=== PATIENT | female | born 1965 | race Caucasian/White ===

== ENCOUNTER → 2016-07-14 | Outpatient (CLI) | payer OTHER ==
[2016-07-14 12:15] LABS: MEAN CORPUSCULAR HEMOGLOBIN 30.7 pg (27.0-33.0); MEAN CORPUSCULAR HGB CONC 33.7 g/dl (32.0-36.5); RED CELL DISTRIBUTION WIDTH 12.4 % (11.5-14.5); WHITE BLOOD COUNT 7.6 K/mm3 (4.0-10.0)
[2016-07-14 12:50] LABS: ESTRADIOL < 19.0 PG/ML; LUTEINIZING HORMONE 49.4 mIU/mL
[2016-07-14 12:51] LABS: FOLLICLE STIMULATING HORMONE 84.4 mIU/mL
[2016-07-14 12:58] LABS: ALBUMIN 4.2 GM/DL (3.2-5.2); ALBUMIN/GLOBULIN RATIO 1.45 (1.00-1.93); ALKALINE PHOSPHATASE 70 U/L (45-117); ALT/SGPT 23 U/L (12-78); ANION GAP 11 MEQ/L (8-16); AST/SGOT 19 U/L (15-37); BILIRUBIN,TOTAL 0.6 MG/DL (0.2-1.0); BLOOD UREA NITROGEN 15 MG/DL (7-18); CALCIUM LEVEL 9.2 MG/DL (8.5-10.1); CARBON DIOXIDE LEVEL 28 MEQ/L (21-32); CHLORIDE LEVEL 103 MEQ/L (98-107); CHOLESTEROL LEVEL 248 MG/DL (<200); GLOMERULAR FILTRATION RATE > 60.0 (>51); GLUCOSE, FASTING 82 MG/DL (70-105); POTASSIUM SERUM 4.2 MEQ/L (3.5-5.1); SODIUM LEVEL 142 MEQ/L (136-145); TOTAL PROTEIN 7.1 GM/DL (6.4-8.2); TRIGLYCERIDES LEVEL 97 MG/DL (<150)
--- NOTE | 2016-07-14 17:26 | ECGEPIP ---
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
--- NOTE | 2016-07-15 11:29 | REP ---
PA and lateral chest radiograph 07/14/2016 Indication: Anemia Comparison: PA and lateral chest radiographs 06/14/2014 and Findings: Cardiac silhouette is of normal size. The mediastinum is unremarkable in appearance. There is mild bilateral hyperinflation and flattening of diaphragms suggesting COPD. The lungs are clear. Bones and soft tissues within normal limits Impression 1. Cardiac silhouette is of normal size 2. Hyperinflation suggestive of COPD. Lungs are clear bilaterally Signed by Natalia Schwartz MD 07/15/2016 11:21 A
== END ==
LOC: M LAB 11:16
PROVIDERS: ATTEND Family Medicine
DX: D64.9 Anemia, unspecified (principal)

== ENCOUNTER → 2016-07-21 | Outpatient (CLI) | payer OTHER ==
--- NOTE | 2016-07-21 10:49 | REPMRS ---
Patient History The patient states she had a clinical breast exam in July 2016. Digital Mammo Screening Bilat: July 21, 2016 - Exam #: [id number] Bilateral CC and MLO view(s) were taken. Technologist: Ronit Mi Technologist Prior study comparison: June 02, 2011, bilateral digital mammo screening bilat, performed at [facility]. October 09, 2008, bilateral digital mammo screening bilat, performed at [facility]. FINDINGS: The breast tissue is heterogeneously dense. This may lower the sensitivity of mammography. There is a moderate amount of heterogeneously dense fibroglandular tissue which is fairly symmetric. There is no interval development of dominant mass, architectural distortion, or clustered microcalcification typical of malignancy. There has been no change in the appearance of the mammogram from the prior studies. ASSESSMENT: BI-RADS/ACR category 1 mammogram. Negative. Recommendation Routine screening mammogram of both breasts in 1 year (for women over age 40). This mammogram was interpreted with the aid of an FDA-approved computer-aided dectection system. Electronically Signed By: Kiet Butts MD 07/21/16 [id number]
== END ==
LOC: M RAD 09:43
PROVIDERS: ATTEND Family Medicine
DX: Z12.31 Encounter for screening mammogram for malignant neoplasm of breast (principal)

== ENCOUNTER 2018-01-07 17:59 | Emergency (ER) | payer OTHER ==
[2018-01-07] MEDS: NS 1,000 ML IV (19:53)
[2018-01-07 20:16] LABS: BASO % 0.6 % (0.0-1.0); EOS # 0.1 10^3/uL (0.0-0.50); HEMOGLOBIN 14.7 g/dl (12.0-15.5); IMMATURE GRANULOCYTE % 0.3 % (0-3.0); LYMPH # 1.9 10^3/uL (1.5-4.5); LYMPH % 29.5 % (24.0-44.0); MEAN CORPUSCULAR HEMOGLOBIN 32.2 pg (27.0-33.0); MEAN CORPUSCULAR HGB CONC 34.2 g/dl (32.0-36.5); MEAN CORPUSCULAR VOLUME 94.3 fl (80.0-96.0); MONO # 0.7 10^3/uL (0.0-0.8); NEUTROPHILS # 3.8 10^3/uL (1.8-7.7); NEUTROPHILS % 57.6 % (36.0-66.0); PLATELET COUNT, AUTOMATED 211 10^3/uL (150-450); RED BLOOD COUNT 4.56 10^6/uL (4.00-5.40); RED CELL DISTRIBUTION WIDTH 12.3 % (11.5-14.5); WHITE BLOOD COUNT 6.6 10^3/uL (4.0-10.0)
[2018-01-07 20:27] LABS: PARTIAL THROMBOPLASTIN TIME 26.5 SECONDS (25.4-37.6)
[2018-01-07 20:38] LABS: INR 0.95; PROTHROMBIN TIME 12.8 SECONDS (12.1-14.4)
[2018-01-07 20:44] LABS: ANION GAP 6 MEQ/L (8-16); BLOOD UREA NITROGEN 16 MG/DL (7-18); CALCIUM LEVEL 9.6 MG/DL (8.5-10.1); CARBON DIOXIDE LEVEL 33 MEQ/L (21-32); CHLORIDE LEVEL 103 MEQ/L (98-107); CK-MB VALUE MASS 2.4 NG/ML (<3.6); CPK CREATINE PHOSPHOKINASE 269 U/L (26-192); CREATININE FOR GFR 0.81 MG/DL (0.55-1.30); GLOMERULAR FILTRATION RATE > 60.0 (>51); GLUCOSE, FASTING 95 MG/DL (70-100); MB/CK RELATIVE INDEX 0.89 (< OR =4); POTASSIUM SERUM 4.2 MEQ/L (3.5-5.1); SODIUM LEVEL 142 MEQ/L (136-145); TROPONIN I < 0.02 NG/ML (< 0.10)
== END 2018-01-07 21:33 | disposition home or self-care (01) ==
LOC: M ED 17:59
DX: S83.92XA Sprain of unspecified site of left knee, initial encounter (principal); S90.32XA Contusion of left foot, initial encounter; R03.0 Elevated blood-pressure reading, without diagnosis of hypertension; V86.55XA Driver of 3- or 4- wheeled all-terrain vehicle (ATV) injured in nontraffic accident, initial encounter; Y92.89 Other specified places as the place of occurrence of the external cause; Z88.8 Allergy status to other drugs, medicaments and biological substances; Z91.018 Allergy to other foods
CPT/HCPCS: 73564

== ENCOUNTER → 2018-01-24 | Outpatient (CLI) | payer OTHER ==
[2018-01-24 12:19] LABS: HEMATOCRIT 40.4 % (36.0-47.0); HEMOGLOBIN 13.9 g/dl (12.0-15.5); MEAN CORPUSCULAR HEMOGLOBIN 32.2 pg (27.0-33.0); MEAN CORPUSCULAR HGB CONC 34.4 g/dl (32.0-36.5); MEAN CORPUSCULAR VOLUME 93.5 fl (80.0-96.0); PLATELET COUNT, AUTOMATED 229 10^3/uL (150-450); RED BLOOD COUNT 4.32 10^6/uL (4.00-5.40); RED CELL DISTRIBUTION WIDTH 11.9 % (11.5-14.5); WHITE BLOOD COUNT 4.7 10^3/uL (4.0-10.0)
[2018-01-24 12:47] LABS: ERYTHROCYTE SEDIMENTATION RATE 17 mm/hr (0-30)
[2018-01-24 13:04] LABS: LUTEINIZING HORMONE 41.2 mIU/mL; TOTAL 25(OH) VITAMIN D 61.7 NG/ML (30.0-100.0)
[2018-01-24 13:05] LABS: ESTRADIOL < 19.0 PG/ML; VITAMIN B12 LEVEL 1203 PG/ML (247-911)
[2018-01-24 13:06] LABS: ALBUMIN 3.8 GM/DL (3.2-5.2); ALBUMIN/GLOBULIN RATIO 1.09 (1.00-1.93); ALKALINE PHOSPHATASE 62 U/L (45-117); ALT/SGPT 24 U/L (12-78); ANION GAP 6 MEQ/L (8-16); AST/SGOT 27 U/L (7-37); BILIRUBIN,TOTAL 0.8 MG/DL (0.2-1.0); BLOOD UREA NITROGEN 10 MG/DL (7-18); CALCIUM LEVEL 8.8 MG/DL (8.5-10.1); CARBON DIOXIDE LEVEL 31 MEQ/L (21-32); CHLORIDE LEVEL 105 MEQ/L (98-107); CHOLESTEROL LEVEL 212 MG/DL (<200); CHOLESTEROL RISK RATIO 2.985 (<5); CREATININE FOR GFR 0.84 MG/DL (0.55-1.30); FOLLICLE STIMULATING HORMONE 77.9 mIU/mL; GLOMERULAR FILTRATION RATE > 60.0 (>51); GLUCOSE, FASTING 82 MG/DL (70-100); HDL CHOLESTEROL 71 MG/DL (>40); IRON (FE) 133 UG/DL (50-170); NON-HDL-C 141 MG/DL; PERCENT SATURATION 34.5 % (13.2-45.0); RHEUMATOID FACTOR QUANT < 10.0 IU/ML (<15.0); SODIUM LEVEL 142 MEQ/L (136-145); TOTAL IRON BINDING CAPACITY 385 UG/DL (250-450); TOTAL PROTEIN 7.3 GM/DL (6.4-8.2); TRIGLYCERIDES LEVEL 110 MG/DL (<150); URIC ACID 3.4 MG/DL (2.6-6.0)
== END ==
LOC: M LAB 11:22
DX: R53.83 Other fatigue (principal); E03.9 Hypothyroidism, unspecified
CPT/HCPCS: 71046

== ENCOUNTER → 2019-04-23 | Outpatient (CLI) | payer OTHER ==
--- NOTE | 2019-04-23 18:41 | ECGEPIP ---
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 Incomplete Left bundle branch block with slow precordial R-wave progression and miniscule inferior Q waves; Body habitus Repolarization changes new from 01/07/18 Clinical correlation advised Electronically Signed on 04-23-2019 18:40:32 EDT by Amrik Riggs
== END ==
LOC: M EKG 11:42
PROVIDERS: ATTEND Orthopaedic Surgery
DX: Z01.818 Encounter for other preprocedural examination (principal); M21.612 Bunion of left foot

== ENCOUNTER → 2019-04-26 | Outpatient (CLI) | payer OTHER ==
[2019-04-26 12:28] LABS: HEMATOCRIT 40.8 % (36.0-47.0); HEMOGLOBIN 13.4 g/dl (12.0-15.5); MEAN CORPUSCULAR HEMOGLOBIN 31.5 pg (27.0-33.0); MEAN CORPUSCULAR HGB CONC 32.8 g/dl (32.0-36.5); PLATELET COUNT, AUTOMATED 221 10^3/uL (150-450); RED BLOOD COUNT 4.25 10^6/uL (4.00-5.40); WHITE BLOOD COUNT 4.9 10^3/uL (4.0-10.0)
[2019-04-26 13:09] LABS: ALBUMIN 3.7 GM/DL (3.2-5.2); ALT/SGPT 23 U/L (12-78); BILIRUBIN,TOTAL 0.7 MG/DL (0.2-1.0); BLOOD UREA NITROGEN 11 MG/DL (7-18); CARBON DIOXIDE LEVEL 32 MEQ/L (21-32); CHLORIDE LEVEL 105 MEQ/L (98-107); CHOLESTEROL LEVEL 236 MG/DL (<200); CHOLESTEROL RISK RATIO 3.189 (<5); CREATININE FOR GFR 0.83 MG/DL (0.55-1.30); GLOMERULAR FILTRATION RATE > 60.0 (>51); GLUCOSE, FASTING 88 MG/DL (70-100); HDL CHOLESTEROL 74 MG/DL (>40); LDL CHOLESTEROL 140 MG/DL (<100); NON-HDL-C 162 MG/DL; POTASSIUM SERUM 4.2 MEQ/L (3.5-5.1); SODIUM LEVEL 142 MEQ/L (136-145); TOTAL PROTEIN 6.9 GM/DL (6.4-8.2); TRIGLYCERIDES LEVEL 112 MG/DL (<150)
--- NOTE | 2019-04-26 13:20 | REP ---
Two-view chest: 04/26/2019 Indication: Hypertension. Comparison: 01/24/2018. Findings: The lungs are clear. There is no pleural effusion or pneumothorax. The cardiac silhouette is normal. Impression: No acute cardiopulmonary process. Electronically Signed by Hawk Harrison DO 04/26/2019 01:11 P
[2019-04-26 14:06] LABS: HEMOGLOBIN A1c 5.4 %
--- NOTE | 2019-04-27 12:24 | ECGEPIP ---
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 LA conduction disturbance. First degree AV block. Left axis deviation; consider possible prior IWMI. Incomplete Right bundle branch block with slow precordial R-wave progression and persistent S waves V5 and V6; Consider body habitus versus pulmonary disease. Repolarization abnormalities noted 04/23/19 have resolved. Electronically Signed on 04-27-2019 12:24:28 EDT by Amrik Riggs
== END ==
LOC: M LAB 11:45
PROVIDERS: ATTEND Family Medicine
DX: I10 Essential (primary) hypertension (principal); I44.0 Atrioventricular block, first degree; I45.19 Other right bundle-branch block

== ENCOUNTER 2021-11-25 23:45 | Emergency (ER) | payer OTHER ==
[~2021-11-25] VITALS: Ht 157.5 cm; Wt 52.3 kg
[2021-11-25 23:58] VITALS: BP 180/90
== END 2021-11-26 01:32 | disposition left against medical advice (07) ==
LOC: M ED 23:45
DX: Z53.29 Procedure and treatment not carried out because of patient's decision for other reasons (principal)

== ENCOUNTER → 2022-08-30 | Outpatient (CLI) | payer OTHER ==
[2022-08-30 12:26] LABS: FOLLICLE STIMULATING HORMONE 76.5 mIU/ML
[2022-08-30 12:27] LABS: LUTEINIZING HORMONE 31.3 mIU/ML; TOTAL 25(OH) VITAMIN D 61.8 NG/ML (20.0-100.0)
[2022-08-30 14:10] LABS: TESTOSTERONE 21 NG/DL (14-76)
[2022-08-30 14:50] LABS: ESTRADIOL < 19.0 PG/ML
== END ==
LOC: M LAB 10:12 → M RAD 10:12
PROVIDERS: ATTEND Family Medicine
DX: I10 Essential (primary) hypertension (principal)

== ENCOUNTER → 2022-08-30 | Outpatient (CLI) | payer OTHER | LOC: M WHC 13:23 | PROVIDERS: ATTEND Family Medicine | DX: Z12.31 Encounter for screening mammogram for malignant neoplasm of breast (principal) ==

== ENCOUNTER → 2022-09-16 | Outpatient (CLI) | payer OTHER | LOC: M WHC 08:49 | PROVIDERS: ATTEND Family Medicine | DX: N60.02 Solitary cyst of left breast (principal) | CPT/HCPCS: 76642; 77065; G0279 ==

== ENCOUNTER → 2023-02-01 | Outpatient (CLI) | payer OTHER ==
[2023-02-01 12:07] LABS: HEMATOCRIT 42.7 % (36.0-47.0); MEAN CORPUSCULAR HEMOGLOBIN 31.7 pg (27.0-33.0); MEAN CORPUSCULAR HGB CONC 32.8 g/dl (32.0-36.5); MEAN CORPUSCULAR VOLUME 96.6 fl (80.0-96.0); PLATELET COUNT, AUTOMATED 228 10^3/uL (150-450); RED BLOOD COUNT 4.42 10^6/uL (4.00-5.40)
[2023-02-01 12:18] LABS: HEMOGLOBIN A1c 5.4 % (4.0-6.0)
[2023-02-01 12:34] LABS: IRON (FE) 120 UG/DL (50-170); PERCENT SATURATION 32.3 % (13.2-45.0); TOTAL IRON BINDING CAPACITY 371 UG/DL (250-425)
[2023-02-01 12:38] LABS: ALBUMIN 3.9 G/DL (3.2-5.2); ALKALINE PHOSPHATASE 72 U/L (46-116); ALT/SGPT 16 U/L (7.0-40); AST/SGOT 16 U/L (<34); BILIRUBIN,TOTAL 0.7 MG/DL (0.3-1.2); BLOOD UREA NITROGEN 14 MG/DL (9-23); CALCIUM LEVEL 9.1 MG/DL (8.5-10.1); CARBON DIOXIDE LEVEL 31 MMOL/L (20-31); CHLORIDE LEVEL 103 MMOL/L (98-107); CHOLESTEROL LEVEL 284 MG/DL (<200); CHOLESTEROL RISK RATIO 4.42 (<5); CREATININE FOR GFR 0.83 MG/DL (0.55-1.30); GLOMERULAR FILTRATION RATE > 60.0 (>51); GLUCOSE, FASTING 83 MG/DL (60-100); HDL CHOLESTEROL 64.2 MG/DL (>40); LDL CHOLESTEROL 182.2 MG/DL (<100); NON-HDL-C 219.8 MG/DL; POTASSIUM SERUM 4.2 MMOL/L (3.5-5.1); SODIUM LEVEL 138 MMOL/L (136-145); THYROID STIMULATING HORMONE 1.633 uIU/ML (0.55-4.78); TOTAL 25(OH) VITAMIN D 53.3 NG/ML (20.0-100.0); TOTAL PROTEIN 6.9 G/DL (5.7-8.2); TRIGLYCERIDES LEVEL 188 MG/DL (<150)
== END ==
LOC: M LAB 10:46
PROVIDERS: ATTEND Family Medicine
DX: I10 Essential (primary) hypertension (principal); D64.9 Anemia, unspecified; R53.83 Other fatigue; E03.9 Hypothyroidism, unspecified

== ENCOUNTER → 2024-01-16 | Outpatient (CLI) | payer OTHER ==
[2024-01-16 10:33] LABS: HEMATOCRIT 40.2 % (36.0-47.0); HEMOGLOBIN 13.4 g/dl (12.0-15.5); MEAN CORPUSCULAR HEMOGLOBIN 32.8 pg (27.0-33.0); MEAN CORPUSCULAR HGB CONC 33.3 g/dl (32.0-36.5); MEAN CORPUSCULAR VOLUME 98.3 fl (80.0-96.0); PLATELET COUNT, AUTOMATED 236 10^3/uL (150-450); RED BLOOD COUNT 4.09 10^6/uL (4.00-5.40); WHITE BLOOD COUNT 7.7 10^3/uL (4.0-10.0)
[2024-01-16 10:50] LABS: HEMOGLOBIN A1c 5.1 % (4.0-6.0)
[2024-01-16 11:00] LABS: ALBUMIN 3.8 G/DL (3.2-5.2); ALKALINE PHOSPHATASE 79 U/L (46-116); ALT/SGPT 24 U/L (7.0-40); AST/SGOT 31 U/L (<34); BILIRUBIN,TOTAL 0.6 MG/DL (0.3-1.2); BLOOD UREA NITROGEN 13 MG/DL (9-23); CARBON DIOXIDE LEVEL 30 MMOL/L (20-31); CHLORIDE LEVEL 108 MMOL/L (98-107); CHOLESTEROL LEVEL 177 MG/DL (<200); CHOLESTEROL RISK RATIO 2.43 (<5); CREATININE FOR GFR 0.88 MG/DL (0.55-1.30); GLOMERULAR FILTRATION RATE > 60.0 (>45); GLUCOSE, FASTING 95 MG/DL (74-106); HDL CHOLESTEROL 72.6 MG/DL (>40); NON-HDL-C 104.4 MG/DL; SODIUM LEVEL 142 MMOL/L (136-145); TOTAL PROTEIN 6.5 G/DL (5.7-8.2); TRIGLYCERIDES LEVEL 67 MG/DL (<150)
[2024-01-16 11:01] LABS: THYROID STIMULATING HORMONE 1.041 uIU/ML (0.55-4.78)
[2024-01-16 11:02] LABS: TOTAL 25(OH) VITAMIN D 61.2 NG/ML (20.0-100.0)
== END ==
LOC: M RAD 09:42
PROVIDERS: ATTEND Family Medicine
DX: I10 Essential (primary) hypertension (principal); D64.9 Anemia, unspecified; R53.83 Other fatigue; R00.1 Bradycardia, unspecified; I25.2 Old myocardial infarction; I45.19 Other right bundle-branch block